=== PATIENT | male | born 1955 | race Caucasian/White ===

== ENCOUNTER → 2019-07-03 | Outpatient (CLI) | payer OTHER ==
--- NOTE | 2019-07-03 13:32 | XR ---
Left shoulder HISTORY: Left shoulder pain 3 views of the left shoulder Bone mineralization, joint spaces and alignment are maintained. Left lung apex as visualized is jose l. Acromioclavicular joint arthropathy noted. No fracture or dislocation. IMPRESSION: Acromioclavicular joint arthropathy
== END | disposition home or self-care (01) ==
LOC: RADXRYALE 09:34
PROVIDERS: ATTEND Physician Assistant Medical
DX: M19.012 Primary osteoarthritis, left shoulder (principal)

== ENCOUNTER → 2024-09-13 | Outpatient (CLI) | payer MEDICARE ==
--- NOTE | 2024-09-14 07:49 | US ---
EXAMINATION TYPE: US kidneys/renal and bladder DATE OF EXAM: 09/13/2024 COMPARISON: NONE CLINICAL INDICATION: Male, 68 years old with history of R31.0 GROSS HEMATURIA; pt had blood in his ur ine roughly 3 weeks ago, blood is now gone, still wanted kidneys/bladder checked TECHNIQUE: Grayscale imaging of the bilateral kidneys and urinary bladder: FINDINGS: EXAM MEASUREMENTS: Right Kidney: 8.7x5.8x5.3 cm Left Kidney: 10.2x5.3x5.1 cm Right Kidney: calcifications seen laterally Left Kidney: No hydronephrosis or masses seen Bladder: wnl Bilateral Jets seen: Yes IMPRESSION: Probable nonobstructing right renal calculi. Consider x-ray or CT confirmation. [facility], Workstation: [employer], 09/14/2024 7:46 AM
== END | disposition home or self-care (01) ==
LOC: RADUSWWP 15:07
PROVIDERS: ATTEND Family Medicine
DX: R31.0 Gross hematuria (principal)
CPT/HCPCS: 76770